=== PATIENT | female | born 1995 | race Caucasian/White ===

== ENCOUNTER 2022-06-07 22:24 | Emergency (ER) | payer MEDICAID ==
[~2022-06-07] VITALS: Ht 157.5 cm; Wt 60.0 kg
[2022-06-08] MEDS ORDERED: AMOXICILLIN/POTASSIUM CLAVULANATE 875/125MG TAB PO ONE (00:45)
[2022-06-08] MEDS ORDERED: ACETAMINOPHEN 325MG TABLET PO ONE (00:45)
[2022-06-08] MEDS ORDERED: IBUPROFEN 400MG TABLET PO ONE (00:45)
[2022-06-08] MEDS ORDERED: AMOXICILLIN/POTASSIUM CLAVULANATE 400MG/5ML 50ML PO NR (01:00)
[2022-06-08] MEDS ORDERED: AMOX1TAB16 MT (01:18)
[2022-06-08] MEDS ORDERED: IBUP-2028 MT (01:18)
[2022-06-08] MEDS ORDERED: TOPUD PO (01:18)
[2022-06-08 01:30] VITALS: BP 125/74
[2022-06-08] MEDS ORDERED: TETANUS, DIPHTHERIA, PERTUSSIS VAC/PF 0.5ML (>10YR OLD) IM ONE (01:30)
== END 2022-06-08 01:31 | disposition home or self-care (01) ==
LOC: ER 22:24
DX: S51.851A Open bite of right forearm, initial encounter (principal); S50.871A Other superficial bite of right forearm, initial encounter; Z97.5 Presence of (intrauterine) contraceptive device; W55.01XA Bitten by cat, initial encounter; Y93.89 Activity, other specified; Y92.018 Other place in single-family (private) house as the place of occurrence of the external cause
CPT/HCPCS: 81025; 99284